=== PATIENT | female | born 1975 | race Caucasian/White ===

== ENCOUNTER 2017-03-17 14:36 | Emergency (ER) | payer OTHER ==
[2017-03-17 14:42] VITALS: RESP 18; TEMP 98.6; O2SAT 100
--- NOTE | 2017-03-17 15:34 | ED PDOC ---
HPI: CCC, URI, Sore Throat Time Seen by Provider: 03/17/17 15:21 Chief Complaint (Nursing): Cough, Cold, Congestion Chief Complaint (Provider): Cough History Per: Patient History/Exam Limitations: no limitations Have you had recent travel within the past 21 days to any of the following countries: [place], [place], [place] or [place]?: No Onset/Duration Of Symptoms: Days (x1 ) Current Symptoms Are (Timing): Still Present Additional Complaint(s): Nhi Lees is a 41 year old female, with a previous medical history of hypertension, diabetes, and asthma, who presents to the emergency department with complains of facial pain associated with rhinorrhea, cough productive of yellow phlegm, general body aches, throat pain, and bilateral fullness of the ears ongoing for one day. She denies any chest pain, shortness of breath, vomiting, diarrhea, nausea or urinary complaints. She notes history of at least one sinus infection per year and denies taking any medications prior to arrival. No diffuse headaches. No neck pain, numbness, tingles, weakness. PMD: Nhi Edwards MD Past Medical History Reviewed: Historical Data, Nursing Documentation, Vital Signs Vital Signs: Last Vital Signs Temp 98.6 F 03/17/17 14:39 Pulse 78 03/17/17 16:00 Resp 18 03/17/17 16:00 BP 162/84 H 03/17/17 16:00 Pulse Ox 100 03/17/17 16:04 - Medical History PMH: Asthma, Diabetes, HTN - Surgical History Surgical History: Denies: CABG - Family History Family History: States: Unknown Family Hx - Living Arrangements Living Arrangements: With Family - Social History Current smoker - smoking cessation education provided: No Alcohol: None Drugs: Denies - Home Medications Home Medications: Ambulatory Orders Medication Instructions Recorded Benzonatate [Tessalon Perles] 100 mg PO BID PRN 5 Days 03/17/17 Ibuprofen [Motrin] 600 mg PO TID 7 Days 03/17/17 - Allergies Allergies/Adverse Reactions: Allergies Allergy/AdvReac Type Severity Reaction Status Date / Time No Known Allergies Allergy Verified 03/17/17 14:39 Review of Systems ROS Statement: Except As Marked, All Systems Reviewed And Found Negative Constitutional: Positive for: Other (facial pain ) ENT: Positive for: Ear Pain (fullness bilaterally), Nose Congestion, Throat Pain Cardiovascular: Negative for: Chest Pain Respiratory: Positive for: Cough, Sputum (yellow). Negative for: Shortness of Breath Gastrointestinal: Negative for: Nausea, Vomiting, Diarrhea Genitourinary Female: Negative for: Dysuria, Frequency, Incontinence, Hematuria Musculoskeletal: Negative for: Neck Pain, Hand Pain Neurological: Negative for: Weakness, Numbness, Confusion, Seizures, Headache Physical Exam - Reviewed Nursing Documentation Reviewed: Yes Vital Signs Reviewed: Yes - Physical Exam Appears: Positive for: Well, Non-toxic, No Acute Distress Head Exam: Positive for: ATRAUMATIC, NORMAL INSPECTION, NORMOCEPHALIC Skin: Positive for: Normal Color, Warm, Dry Eye Exam: Positive for: EOMI, Normal appearance, PERRL ENT: Positive for: TM Is/Are (within normal limits bilaterally ), Nasal Congestion. Negative for: Pharyngeal Erythema, Tonsillar Exudate, Tonsillar Swelling Neck: Positive for: Normal, Painless ROM, Supple Cardiovascular/Chest: Positive for: Regular Rate, Rhythm Respiratory: Positive for: Normal Breath Sounds. Negative for: Crackles, Rales , Rhonchi, Wheezing Gastrointestinal/Abdominal: Positive for: Normal Exam, Bowel Sounds, Soft. Negative for: Tenderness Back: Positive for: Normal Inspection. Negative for: L CVA Tenderness, R CVA Tenderness Extremity: Positive for: Normal ROM. 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 Negative for: Motor/Sensory Deficits - ECG O2 Sat by Pulse Oximetry: 100 (RA) Pulse Ox Interpretation: Normal Medical Decision Making Medical Decision Making: Initial impression: URI Initial plan: * Motrin 600mg PO * Urine * Reevaluation Upon provider reevaluation patient is medically stable, and requires no further treatment in the ED at this time. Patient will be discharged home with Rx for Motrin and Tessalon Perles. Counseling was provided and all questions were answered regarding diagnosis and need for follow up with PCP. There is agreement to discharge plan. Return if symptoms persist or worsen. Clinical Impression: URI Scribe Attestation: Documented by Silvana Mccloud, acting as a scribe for Nate Castro MD. Provider Scribe Attestation: All medical record entries made by the Scribe were at my direction and personally dictated by me. I have reviewed the chart and agree that the record accurately reflects my personal performance of the history, physical exam, medical decision making, and the department course for this patient. I have also personally directed, reviewed, and agree with the discharge instructions and disposition. Disposition - Clinical Impression Clinical Impression: URI (upper respiratory infection) - Patient ED Disposition Is Patient to be Admitted: No Doctor Will See Patient In The: Office Counseled Patient/Family Regarding: Studies Performed, Diagnosis, Need For Followup, Rx Given - Disposition Referrals: [facility] [Outside] - 03/20/17 Disposition: Routine/Home Disposition Time: 15:43 Condition: IMPROVED Additional Instructions: Return if not better in 3 days. Prescriptions: Benzonatate [Tessalon Perles] 100 mg PO BID PRN 5 Days PRN Reason: Cough Ibuprofen [Motrin] 600 mg PO TID 7 Days Instructions: Upper Respiratory Infection (ED) Forms: [employer] ([place])
[2017-03-17 16:02] VITALS: BP 162/84; PULSE 78
== END 2017-03-17 16:15 | disposition home or self-care (01) ==
LOC: H.ER 14:36
DX: J06.9 Acute upper respiratory infection, unspecified (principal); I10 Essential (primary) hypertension; E11.9 Type 2 diabetes mellitus without complications